=== PATIENT | female | born 1985 | race Two or more races ===

== ENCOUNTER 2017-11-20 06:15 | Outpatient (CLI) | payer SELFPAY ==
[~2017-11-20] VITALS: Ht 167.6 cm; Wt 86.3 kg
[2017-11-20 06:32] VITALS: BP 107/60
[2017-11-20 07:56] VITALS: BP 95/55
--- NOTE | 2017-11-21 08:44 | HPE ---
DATE OF ADMISSION: 11/20/2017 This lady is a 32-year-old, 3, para 2, last menstrual period (LMP) 02/12/2017, expected date of confinement (EDC) 11/19/2017 at 40 weeks 1 day of gestation, complaining of contractions every 10-12 minutes. No loss of fluid or vaginal bleeding. She does not have her passport with her, we are unable to find her chart. She does not remember who she saw last. She anticipates having an epidural when in active labor. Her risk factors is she a transfer of care of 18 weeks. 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 Labs are gonorrhea and chlamydia are negative. HIV negative. Rubella immune. Varicella negative. RPR negative. Hepatitis negative. O positive. Urine negative. 1-hour glucose was normal. On examination, she does not appear to be in any distress. Symphysis fundus height is 40, vertex. Four quadrant bowel sounds. Nontender uterus. Pelvic examination with no loss of fluid or discharge. Cervix is posterior, 2 cm, 50% effaced, -3 station. Category II strip, which we are trying to rectify as a category I. We have given her some fluids and some diet in order to eat. Her blood pressure is 107/60, respirations are 18, pulse is 101, and temperature is 99.4. Urine is 1.010, pH 7, and negative. The patient is at term with uterine irritability. Feels that she is in labor, however, does not demonstrate any cervical change or adequate contractions. The rest of the examination is unremarkable. She is normocephalic, atraumatic. Neck full range of motion. Pupils equal and reactive to light. Distal pulses are symmetric. No evidence of deep vein thrombosis (DVT), pulmonary embolism (PE) or superficial phlebitis. No wheezes or rhonchi. Chest is clear bilaterally at bases. No costovertebral angle (CVA) tenderness. No rashes, lesions or pruritus. No arthralgia or myalgia. No complaints of cough, wheeze, shortness of breath, or dyspnea on exertion. No chest pain. Not bleeding. Neuro complete. No incontinence. No nausea, vomiting, diarrhea, or constipation. No diabetic issues. No DIRECTOR PROPERTY issues. No past surgical or medical issues. She had an early ultrasound at [facility] showed no evidence of fibroids, normal growth, with a discrepancy of 9 days in regards to her expected date of confinement (EDC). Our plan of management is to director of group counseling program her on precautions, await a category one strip and discharge to follow up with her routine appointment of which she does not know when it is or who it is with, unless she demonstrates cervical change or contractions are 5-7 minutes apart. She will be discharged to follow up, with but can come back at any time.
== END 2017-11-20 08:35 | disposition home or self-care (01) ==
LOC: M LDO 06:15
PROVIDERS: ATTEND Obstetrics & Gynecology
DX: O47.1 False labor at or after 37 completed weeks of gestation (principal); Z3A.40 40 weeks gestation of pregnancy

== ENCOUNTER 2017-11-20 14:34 | Inpatient (IN) | payer OTHER, SELFPAY ==
[~2017-11-20] VITALS: Ht 167.6 cm; Wt 86.3 kg
[2017-11-20] VITALS (8 sets, daily range): BP systolic 117–137; BP diastolic 60–72
[2017-11-20] MEDS: LR 1,000 ML IV SCH ×2 (15:00→22:30)
[2017-11-20] MEDS ORDERED: OXYTOCIN 30 UNITS IN 0.9% NaCl 500ML IV BAG (J2590) As Ordered ONE (15:06)
[2017-11-20] MEDS ORDERED: OXYTOCIN DRIP 30 UNITS in APPROPRIATE DILUENT 1 EA IV SCH (15:20)
[2017-11-20] MEDS ORDERED: ANUSOL HC CREAM 30GM TOP PRN (15:30)
[2017-11-20] MEDS ORDERED: MEASLES,MUMPS,RUBELLA VACCINE INJ (MMR-II) (90707) SC SCH (15:30)
[2017-11-20] MEDS ORDERED: METHYLERGONOVINE MALEATE 0.2 MG TAB PO PRN (15:30)
[2017-11-20] MEDS ORDERED: DIBUCAINE 1% OINTMENT 30GM TOP PRN (15:30)
[2017-11-20] MEDS ORDERED: MOM 30ML SUSPENSION UDC PO PRN (15:30)
[2017-11-20] MEDS ORDERED: OXYTOCIN INJ 10 UNITS/ML VIAL (J2590) IV ONE (15:30)
[2017-11-20] MEDS ORDERED: RHOGAM 300 MCG (1500 IU) INJ (J2790) IM SCH (15:30)
[2017-11-20] MEDS ORDERED: DOCUSATE SODIUM 100 MG CAP PO PRN (15:30)
[2017-11-20 15:36] LABS: MEAN CORPUSCULAR HEMOGLOBIN 28.3 pg (27.0-33.0); MEAN CORPUSCULAR VOLUME 88.4 fl (80.0-96.0); PLATELET COUNT, AUTOMATED 268 10^3/uL (150-450); RED CELL DISTRIBUTION WIDTH 14.3 % (11.5-14.5); WHITE BLOOD COUNT 16.6 10^3/uL (4.0-10.0)
[2017-11-20] MEDS: IBUPROFEN 800 MG TAB PO PRN ×2 (15:36→23:51)
[2017-11-20 15:45] LABS: CORD GAS ABE V -7.2; CORD GAS HCO3 V 17.5 MEQ/L; CORD GAS O2 SAT V 59.9 %; CORD GAS PCO2 V 33.5 mmHg; CORD GAS PH V 7.337 UNITS; CORD GAS PO2 V 28.1 mmHg; CORD GAS SBC V 17.9 MEQ/L; CORD GAS TCO2 V 18.6 MEQ/L
[2017-11-20 15:47] LABS: CORD GAS HCO3 A 21.8 MEQ/L; CORD GAS PCO2 A 34.7 mmHg; CORD GAS PH A 7.416 UNITS; CORD GAS PO2 A 100.8 mmHg; CORD GAS SBC A 22.8 MEQ/L; CORD GAS TCO2 A 22.9 MEQ/L
[2017-11-20 15:48] LABS: CORD GAS O2 SAT A 60.1 %
[2017-11-20] MEDS: ACETAMINOPHEN 500 MG TAB PO PRN (17:35)
[2017-11-21] MEDS: LR 1,000 ML IV SCH (02:58)
[2017-11-21] MEDS: ACETAMINOPHEN 500 MG TAB PO PRN ×2 (04:11→20:27)
[2017-11-21 05:58] VITALS: BP 104/54
[2017-11-21 06:53] LABS: MEAN CORPUSCULAR HGB CONC 32.2 g/dl (32.0-36.5); MEAN CORPUSCULAR VOLUME 87.1 fl (80.0-96.0); PLATELET COUNT, AUTOMATED 242 10^3/uL (150-450); RED CELL DISTRIBUTION WIDTH 14.2 % (11.5-14.5); WHITE BLOOD COUNT 17.8 10^3/uL (4.0-10.0)
[2017-11-21] MEDS: IBUPROFEN 800 MG TAB PO PRN ×2 (07:45→16:00)
[2017-11-21] MEDS: PRENATAL VITAMINS CHEWABLE TABLET PO SCH (07:45)
--- NOTE | 2017-11-21 14:05 | IPN ---
DATE: 11/21/2017 32-year-old 3, now para 3 admitted in active labor, delivered a female 9 pounds 2 ounces, 4130 grams, Apgars of 8 and 9 at one and five minutes respectively. Arterial pH was 7.41, base excess -2.0, venous pH 7.33, base excess -7.2. She is GBS positive and came in fully dilated and delivered without antibiotic coverage. Admitting hemoglobin 12.4, hematocrit 38.7, platelets are 268. day #1 hemoglobin 10.0, hematocrit 31.1 and platelets are 242. We discussed phlebitis, cystitis, mastitis, metritis, cellulitis, diet, exercise, pain management, perineal and breast wound care. The patient is uncertain as to method of control at the present time. On examination today, breast examination normal. Uterus below, lochia is moderate, four quadrant bowel sounds are noted. Perineum is intact. The patient is anxious for discharge tomorrow, again uncertain of method of control. Will discuss in 6 weeks checkup. Vital signs: Blood pressure 104/54, respirations 16, pulse 89, temperature 99.0. The patient is anxious for discharge tomorrow.
[2017-11-21 18:00] VITALS: BP 116/61
[2017-11-22 06:00] VITALS: BP 96/53
[2017-11-22] MEDS: PRENATAL VITAMINS CHEWABLE TABLET PO SCH (07:52)
[2017-11-22] MEDS: IBUPROFEN 800 MG TAB PO PRN (07:53)
[2017-11-22] MEDS ORDERED: PRENTAB9 PO (08:51)
[2017-11-22] MEDS ORDERED: ACET50TA PO (08:52)
[2017-11-22] MEDS ORDERED: COLA100C5 PO (08:52)
[2017-11-22] MEDS ORDERED: IBUP-1114 PO (08:55)
[2017-11-22 12:28] LABS: CONTROL LINE INT CTR LINE PRESENT; HIV SCRN NEGATIVE (NEGATIVE); HIV SCRN1 NEGATIVE (NEGATIVE)
--- NOTE | 2017-11-22 17:54 | DN ---
DATE: 11/20/2017 This lady is 4, now para 3, admitted in active labor fully dilated with head. Delivered a live- female infant, 9 pounds 2 ounces, 4130 grams, scores of 8 and 9 at one and five minutes, respectfully. She had a spontaneous rupture of membranes prior to delivery. There was particulate meconium. Placenta delivered spontaneously thereafter. Three-vessel cord, membranes, and tissues intact. Uterus contracted well down on Pitocin. Examination of the vagina, vulva, the perineum, the rectal sphincter all were intact. No evidence of lacerations or tears. The patient and baby tolerating procedure well.
== END 2017-11-22 18:00 | disposition home or self-care (01) | DRG 775 ==
LOC: M LDO 14:34 → M LDI 14:49 → M OBS 17:17
PROVIDERS: ADMIT Obstetrics & Gynecology; ATTEND Obstetrics & Gynecology
PROC: 10E0XZZ Delivery of Products of Conception, External Approach (ICD-10-PCS; principal; 2017-11-20)
DX: O99.824 Streptococcus B carrier state complicating childbirth (principal); Z37.0 Single live birth; O77.0 Labor and delivery complicated by meconium in amniotic fluid

== ENCOUNTER 2018-05-29 12:15 | Emergency (ER) | payer OTHER ==
[2018-05-29] MEDS: ACETAMINOPHEN TAB 650MG DOSE (2X325MG) PO (14:03)
[2018-05-29] MEDS: IBUPROFEN 800 MG TAB PO (14:03)
[2018-05-29 14:21] LABS: BASO % 0.5 % (0.0-1.0); EOS # 0.2 10^3/uL (0.0-0.50); EOS % 3.3 % (0.0-3.0); HEMATOCRIT 41.2 % (36.0-47.0); HEMOGLOBIN 13.4 g/dl (12.0-15.5); IMMATURE GRANULOCYTE % 0.2 % (0-3.0); LYMPH # 3.1 10^3/uL (1.5-4.5); LYMPH % 51.6 % (24.0-44.0); MEAN CORPUSCULAR HGB CONC 32.5 g/dl (32.0-36.5); MEAN CORPUSCULAR VOLUME 86.2 fl (80.0-96.0); MONO # 0.5 10^3/uL (0.0-0.8); MONO % 7.9 % (0.0-5.0); NEUTROPHILS # 2.2 10^3/uL (1.8-7.7); NEUTROPHILS % 36.5 % (36.0-66.0); PLATELET COUNT, AUTOMATED 244 10^3/uL (150-450); RED BLOOD COUNT 4.78 10^6/uL (4.00-5.40); RED CELL DISTRIBUTION WIDTH 12.3 % (11.5-14.5); WHITE BLOOD COUNT 6.1 10^3/uL (4.0-10.0)
[2018-05-29 14:41] LABS: ANION GAP 7 MEQ/L (8-16); BLOOD UREA NITROGEN 16 MG/DL (7-18); CARBON DIOXIDE LEVEL 30 MEQ/L (21-32); CHLORIDE LEVEL 105 MEQ/L (98-107); CREATININE FOR GFR 0.92 MG/DL (0.55-1.30); GLOMERULAR FILTRATION RATE > 60.0 (>60); GLUCOSE, FASTING 82 MG/DL (70-100); POTASSIUM SERUM 4.4 MEQ/L (3.5-5.1); SODIUM LEVEL 142 MEQ/L (136-145)
== END 2018-05-29 15:47 | disposition home or self-care (01) ==
LOC: M ED 12:15
DX: R51 Headache (principal)
CPT/HCPCS: 84443

== ENCOUNTER → 2018-12-14 | Outpatient (REF) | payer OTHER ==
[~2018-12-14] MED LIST: COLA100C5 PO; IBUP-1022 PO; IBUP-1114 PO; MAPA500T2 PO; PRENTAB9 PO
== END ==
LOC: M SFHCLERA 20:44
PROVIDERS: ATTEND Physician Assistant
DX: J02.9 Acute pharyngitis, unspecified (principal)

== ENCOUNTER → 2019-12-14 | Outpatient (CLI) | payer OTHER ==
--- NOTE | 2019-12-14 15:52 | REP ---
KUB: Two views. History: Abdomen pain. Findings: There are surgical clips in the central abdomen. Bowel gas pattern is normal. Flank stripes are intact. No mass, organomegaly, or pathologic calcification is seen. Impression: Unremarkable KUB. Surgical clips noted in the central abdomen. Electronically Signed by Tristen Nash MD 12/14/2019 03:44 P
== END ==
LOC: M LRY 15:05
PROVIDERS: ATTEND Nurse Practitioner Family
DX: R10.9 Unspecified abdominal pain (principal)
CPT/HCPCS: 74018; 81002; 81025; G0463